=== PATIENT | female | born 1950 | race African-American/Black ===

== ENCOUNTER 2016-12-20 17:00 | Inpatient (IN) | payer OTHER ==
[~2016-12-20] VITALS: Ht 170.2 cm; Wt 108.0 kg
[2016-12-20 18:08] LABS: PLATELET COUNT 190 x10^3mcL (130-400); RED CELL DISTRIBUTION WIDTH 13.5 % (11.5-14.5)
[2016-12-20 18:13] LABS: CALCIUM 9.6 mg/dL (8.5-10.1); CARBON DIOXIDE 24.6 mmol/L (21-32); CREATININE SERUM 1.3 mg/dL (0.6-1.0); POTASSIUM SERUM 3.7 mmol/L (3.5-5.1)
[2016-12-20 18:18] LABS: ALBUMIN 3.4 g/dL (3.4-5.0); BILIRUBIN TOTAL 0.42 mg/dL (0.20-1.00); TOTAL PROTEIN, SERUM 7.2 g/dL (6.4-8.2)
[2016-12-20] MEDS ORDERED: NOR10 PO (18:44)
[2016-12-20] MEDS ORDERED: CRANBERRY PLUS1 EAC1 PO (18:45)
[2016-12-20] MEDS ORDERED: NOR10T PO (18:45)
[2016-12-20] MEDS ORDERED: LASIX40 MG PO (18:45)
[2016-12-20] MEDS ORDERED: KLOR-CON M2020 MEQ PO (18:46)
[2016-12-20] MEDS ORDERED: FISH OIL500 M1 PO (18:48)
[2016-12-20] MEDS ORDERED: SENNA LAX8.6 MG PO (18:48)
[2016-12-20 18:50] LABS: BAND NEUTROPHIL 0 % (0-10); BASOPHIL 0 % (0-2); MONOCYTE 4 % (0-7); PLATELET MORPHOLOGY LARGE PLATELET SEEN; SEGMENTED NEUTROPHILS 67 % (37-75); rbc morphology (normal/abnorm) ABNORMAL (NORMAL)
[2016-12-20 21:00] VITALS: BP 143/67
[2016-12-20 21:33] LABS: MAGNESIUM 1.6 mg/dL (1.8-2.4); PHOSPHOROUS 2.2 mg/dL (2.5-4.9)
[2016-12-20 21:34] LABS: CHOLESTEROL/HDL RATIO 4.3
[2016-12-20 21:58] LABS: FREE T4 1.1 ng/dL (0.76-1.46); FREE THYROXINE INDEX 3.2 ug/dL (1.4-4.5); T4(THYROXINE) 9.5 ug/dL (4.7-13.3)
[2016-12-20 22:25] LABS: T3 TOTAL 1.12 ng/mL
[2016-12-21] MEDS ORDERED: METOPROLOL TART25 M1 PO (02:55)
[2016-12-21 05:43] LABS: BASOPHIL % 0.5 % (0-2); PLATELET COUNT 164 x10^3mcL (130-400); RED CELL DISTRIBUTION WIDTH 13.4 % (11.5-14.5)
[2016-12-21 06:07] LABS: CALCIUM 9.1 mg/dL (8.5-10.1); CARBON DIOXIDE 22.5 mmol/L (21-32); CREATININE SERUM 1.2 mg/dL (0.6-1.0); MAGNESIUM 1.6 mg/dL (1.8-2.4); PHOSPHOROUS 2.9 mg/dL (2.5-4.9); POTASSIUM SERUM 3.7 mmol/L (3.5-5.1)
[2016-12-21 06:14] VITALS: BP 111/56
[2016-12-21 10:33] VITALS: BP 120/69
[2016-12-21 18:45] VITALS: BP 129/61
[2016-12-21 19:42] LABS: UA SPECIFIC GRAVITY 1.015 (1.005-1.035); microscopic required? YES; urine erythrocyte 3+ (NEGATIVE)
[2016-12-21 19:53] LABS: AMPHETAMINE QUAL UR NONE DETECTED (NEG <=1000)
[2016-12-21 21:27] VITALS: BP 143/70
[2016-12-22 06:13] LABS: BASOPHIL % 0.5 % (0-2); PLATELET COUNT 166 x10^3mcL (130-400); RED CELL DISTRIBUTION WIDTH 13.3 % (11.5-14.5)
[2016-12-22 06:36] LABS: CALCIUM 9.2 mg/dL (8.5-10.1); CARBON DIOXIDE 21.2 mmol/L (21-32); CREATININE SERUM 1.3 mg/dL (0.6-1.0); MAGNESIUM 1.6 mg/dL (1.8-2.4); POTASSIUM SERUM 4.1 mmol/L (3.5-5.1)
[2016-12-22 06:40] VITALS: BP 128/70
[2016-12-22] MEDS ORDERED: LASIX40 MG PO (09:21)
[2016-12-22] MEDS ORDERED: MASON NATURAL1000 IU PO (09:22)
[2016-12-22 10:17] VITALS: BP 132/64
[2016-12-22 13:31] VITALS: BP 117/49
[2016-12-22 17:14] VITALS: BP 122/54
[2016-12-22 21:57] VITALS: BP 115/50
[2016-12-23 05:51] VITALS: BP 101/51
[2016-12-23 05:56] LABS: BASOPHIL % 0.6 % (0-2); PLATELET COUNT 173 x10^3mcL (130-400); RED CELL DISTRIBUTION WIDTH 13.5 % (11.5-14.5)
[2016-12-23 06:18] LABS: CALCIUM 9.2 mg/dL (8.5-10.1); CARBON DIOXIDE 21.9 mmol/L (21-32); CREATININE SERUM 1.2 mg/dL (0.6-1.0); MAGNESIUM 1.5 mg/dL (1.8-2.4); PHOSPHOROUS 2.9 mg/dL (2.5-4.9); POTASSIUM SERUM 3.8 mmol/L (3.5-5.1)
[2016-12-23 10:16] VITALS: BP 97/40
[2016-12-23] MEDS ORDERED: LEVAQUIN750 MG PO (11:19)
[2016-12-23] MEDS ORDERED: CLINDAMYCIN HC300 MG PO (11:20)
[2016-12-23 11:45] VITALS: BP 97/40
[2016-12-23] MEDS ORDERED: LEVAQUIN500 M1 PO (11:50)
[2016-12-23] MEDS ORDERED: LIPI10 PO (12:20)
[2016-12-23] MEDS ORDERED: ASPIR 8181 MG PO (12:20)
== END 2016-12-23 18:43 | disposition home or self-care (01) | DRG 312 ==
LOC: ED 17:00 → MU 19:29 → DU 19:29 → MU 12-21 11:20
PROVIDERS: Emergency Medicine; ADMIT Family Medicine
PROC: 0HBNXZZ Excision of Left Foot Skin, External Approach (ICD-10-PCS; principal; 2016-12-21)
DX: M86.8X7 Other osteomyelitis, ankle and foot (principal); N17.0 Acute kidney failure with tubular necrosis; I89.0 Lymphedema, not elsewhere classified; E83.42 Hypomagnesemia; G82.20 Paraplegia, unspecified; E87.8 Other disorders of electrolyte and fluid balance, not elsewhere classified; E83.39 Other disorders of phosphorus metabolism; R23.8 Other skin changes; Z99.3 Dependence on wheelchair; Z68.37 Body mass index [BMI] 37.0-37.9, adult; N39.0 Urinary tract infection, site not specified; I70.202 Unspecified atherosclerosis of native arteries of extremities, left leg
CPT/HCPCS: 83880; 84439; J0696; J1956; J3475; J3490; J7030; Q0092

== ENCOUNTER 2017-05-24 19:28 | Emergency (ER) | payer MEDICARE, OTHER ==
[~2017-05-24 19:28] MED LIST: ASPIR 8181 MG PO; CLINDAMYCIN HC300 MG PO; CRANBERRY PLUS1 EAC1 PO; FISH OIL500 M1 PO; KLOR-CON M2020 MEQ PO; LASIX40 MG PO; LEVAQUIN500 M1 PO; LEVAQUIN750 MG PO; LIPI10 PO; MASON NATURAL1000 IU PO; METOPROLOL TART25 M1 PO; NOR10 PO; NOR10T PO; SENNA LAX8.6 MG PO
[2017-05-24 22:23] LABS: microscopic required? YES; urine erythrocyte 1+ (NEGATIVE)
[2017-05-24 23:54] VITALS: BP 118/56
== END 2017-05-24 23:54 | disposition home or self-care (01) ==
LOC: ED 19:28
PROVIDERS: Emergency Medicine
DX: S63.602A Unspecified sprain of left thumb, initial encounter (principal); R82.71 Bacteriuria; G82.20 Paraplegia, unspecified; I10 Essential (primary) hypertension; E78.00 Pure hypercholesterolemia, unspecified; E66.9 Obesity, unspecified; K21.9 Gastro-esophageal reflux disease without esophagitis; Z90.49 Acquired absence of other specified parts of digestive tract; Z88.2 Allergy status to sulfonamides; W34.00XA Accidental discharge from unspecified firearms or gun, initial encounter; Y93.89 Activity, other specified; Y92.89 Other specified places as the place of occurrence of the external cause; Y99.8 Other external cause status
CPT/HCPCS: J1885; Q0092

== ENCOUNTER 2017-06-19 15:26 | Emergency (ER) | payer MEDICARE, OTHER ==
[~2017-06-19] VITALS: Ht 172.7 cm; Wt 113.4 kg
[2017-06-19 17:08] VITALS: Ht 172.7 cm; Wt 113.4 kg
[2017-06-19 19:04] VITALS: BP 109/54
== END 2017-06-19 20:02 | disposition left against medical advice (07) ==
LOC: ED 15:26
DX: Z53.21 Procedure and treatment not carried out due to patient leaving prior to being seen by health care provider (principal)

== ENCOUNTER 2017-06-28 02:27 | Inpatient (IN) | payer OTHER, MEDICARE ==
[~2017-06-28] VITALS: Ht 172.7 cm; Wt 111.8 kg
[2017-06-28 03:57] LABS: CALCIUM 10.2 mg/dL (8.5-10.1); CARBON DIOXIDE 22.6 mmol/L (21-32); CREATININE SERUM 1.5 mg/dL (0.6-1.0); POTASSIUM SERUM 4.8 mmol/L (3.5-5.1)
[2017-06-28 04:28] LABS: BASOPHIL % 0.7 % (0-2); PLATELET COUNT 207 x10^3mcL (130-400); RED CELL DISTRIBUTION WIDTH 13.6 % (11.5-14.5)
[2017-06-28 06:03] VITALS: BP 120/63
[2017-06-28 06:51] LABS: T3 TOTAL 1.34 ng/mL
[2017-06-28 07:02] LABS: FREE T4 1.25 ng/dL (0.76-1.46)
[2017-06-28] MEDS ORDERED: FISH OIL 1,2001 EACH PO (07:29)
[2017-06-28 07:30] LABS: MAGNESIUM 2.1 mg/dL (1.8-2.4); PHOSPHOROUS 2.6 mg/dL (2.5-4.9)
[2017-06-28 07:31] LABS: CHOLESTEROL/HDL RATIO 3.9
[2017-06-28] MEDS ORDERED: NATURAL VITAM1000 MG PO (07:31)
[2017-06-28] MEDS ORDERED: VITAMIN K (07:31)
[2017-06-28] MEDS ORDERED: TOPROL XL25 MG PO (07:32)
[2017-06-28] MEDS ORDERED: ASPIRIN ADULT L81 M3 PO (07:32)
[2017-06-28 09:30] VITALS: BP 134/82
[2017-06-28 10:18] VITALS: BP 134/82
[2017-06-28 14:12] VITALS: BP 131/66
[2017-06-28 18:08] VITALS: BP 144/58
[2017-06-28 22:05] VITALS: BP 138/83
[2017-06-29 06:06] VITALS: BP 131/64
[2017-06-29 08:50] VITALS: BP 144/69
[2017-06-29 12:53] VITALS: BP 133/68
[2017-06-29 17:45] VITALS: BP 142/66
[2017-06-29 21:07] VITALS: BP 113/60
[2017-06-30 05:44] VITALS: BP 113/57
[2017-06-30 07:31] LABS: BASOPHIL % 0.5 % (0-2); PLATELET COUNT 159 x10^3mcL (130-400); RED CELL DISTRIBUTION WIDTH 13.7 % (11.5-14.5)
[2017-06-30 07:46] LABS: CALCIUM 9.8 mg/dL (8.5-10.1); CARBON DIOXIDE 20.6 mmol/L (21-32); CREATININE SERUM 1.4 mg/dL (0.6-1.0); MAGNESIUM 1.8 mg/dL (1.8-2.4); PHOSPHOROUS 3.6 mg/dL (2.5-4.9); POTASSIUM SERUM 4.4 mmol/L (3.5-5.1)
[2017-06-30 09:03] VITALS: BP 141/69
[2017-06-30 09:35] LABS: UA SPECIFIC GRAVITY 1.015 (1.005-1.035); microscopic required? YES; urine erythrocyte 3+ (NEGATIVE)
[2017-06-30 18:23] VITALS: BP 132/78
[2017-06-30 21:38] VITALS: BP 143/76
[2017-07-01 06:19] VITALS: BP 155/65
[2017-07-01 07:24] LABS: BASOPHIL % 0.5 % (0-2); PLATELET COUNT 179 x10^3mcL (130-400)
[2017-07-01 07:40] LABS: CALCIUM 9.9 mg/dL (8.5-10.1); CARBON DIOXIDE 18.7 mmol/L (21-32); CREATININE SERUM 1.5 mg/dL (0.6-1.0); MAGNESIUM 1.7 mg/dL (1.8-2.4); PHOSPHOROUS 3.7 mg/dL (2.5-4.9); POTASSIUM SERUM 4.2 mmol/L (3.5-5.1)
[2017-07-01 07:48] LABS: ALBUMIN 3.2 g/dL (3.4-5.0)
[2017-07-01 09:36] VITALS: BP 106/50
[2017-07-01 12:44] VITALS: Ht 172.7 cm; Wt 111.8 kg
[2017-07-01 12:45] VITALS: BP 146/77
[2017-07-01] MEDS ORDERED: LEVAQUIN750 MG PO (16:17)
[2017-07-01] MEDS ORDERED: LAC PO (16:18)
[2017-07-01] MEDS ORDERED: CLINDAMYCIN HC300 MG PO (16:18)
[2017-07-01] MEDS ORDERED: FLO4 PO (16:19)
[2017-07-01] MEDS ORDERED: MUCINEX600 MG PO (16:21)
[2017-07-01] MEDS ORDERED: PREVPAC1 KIT PO (16:25)
[2017-07-01] MEDS ORDERED: DICLOFENAC POTA50 MG PO (17:27)
[2017-07-01 17:29] VITALS: BP 126/77
== END 2017-07-01 19:15 | disposition home or self-care (01) | DRG 137 ==
LOC: ED 02:27 → DU 05:29
PROVIDERS: Emergency Medicine; Family Medicine; Internal Medicine
PROC: 0DB78ZX Excision of Stomach, Pylorus, Via Natural or Artificial Opening Endoscopic, Diagnostic (ICD-10-PCS; principal; 2017-07-01 07:00)
DX: J69.0 Pneumonitis due to inhalation of food and vomit (principal); N17.0 Acute kidney failure with tubular necrosis; D68.69 Other thrombophilia; G82.20 Paraplegia, unspecified; I42.9 Cardiomyopathy, unspecified; K26.3 Acute duodenal ulcer without hemorrhage or perforation; E11.51 Type 2 diabetes mellitus with diabetic peripheral angiopathy without gangrene; E83.52 Hypercalcemia; N39.0 Urinary tract infection, site not specified; K75.81 Nonalcoholic steatohepatitis (NASH); N28.1 Cyst of kidney, acquired; K29.70 Gastritis, unspecified, without bleeding; K20.8 Other esophagitis; K21.9 Gastro-esophageal reflux disease without esophagitis; N31.8 Other neuromuscular dysfunction of bladder; E78.5 Hyperlipidemia, unspecified; I10 Essential (primary) hypertension; Z99.3 Dependence on wheelchair; E66.9 Obesity, unspecified; Z68.36 Body mass index [BMI] 36.0-36.9, adult; X95.9XXS Assault by unspecified firearm discharge, sequela
CPT/HCPCS: 43235; 83880; 84439; 87804; 94150; J0456; J0696; J1200; J1610; J1644; J1885; J1956; J2250; J2310; J3010; J3490; J7030; J7050; J7620; Q0092

== ENCOUNTER → 2017-07-16 | Outpatient (CLI) | payer MEDICARE, OTHER ==
[~2017-07-16] MED LIST changes: +ASPIRIN ADULT L81 M3 PO; +DICLOFENAC POTA50 MG PO; +FISH OIL 1,2001 EACH PO; +FLO4 PO; +LAC PO; +MUCINEX600 MG PO; +NATURAL VITAM1000 MG PO; +PREVPAC1 KIT PO; +TOPROL XL25 MG PO; +VITAMIN K
== END | disposition home or self-care (01) ==
LOC: RD 16:28
DX: M79.641 Pain in right hand (principal)

== ENCOUNTER 2017-12-23 10:57 | Emergency (ER) | payer MEDICARE, OTHER ==
[~2017-12-23] VITALS: Ht 167.6 cm; Wt 136.1 kg
[2017-12-23 11:01] VITALS: Ht 167.6 cm; Wt 136.1 kg
[2017-12-23 11:45] LABS: RED CELL DISTRIBUTION WIDTH 13.8 % (11.5-14.5)
[2017-12-23 11:49] LABS: BASOPHIL % 0 % (0-2); PLATELET COUNT 115 x10^3mcL (130-400)
[2017-12-23 12:05] LABS: CALCIUM 9.3 mg/dL (8.5-10.1); CARBON DIOXIDE 21.8 mmol/L (21-32); CREATININE SERUM 3.5 mg/dL (0.6-1.0); POTASSIUM SERUM 4.4 mmol/L (3.5-5.1)
[2017-12-23 12:12] LABS: BILIRUBIN TOTAL 1.61 mg/dL (0.20-1.00); TOTAL PROTEIN, SERUM 6.7 g/dL (6.4-8.2)
[2017-12-23 12:16] LABS: ALBUMIN 2.6 g/dL (3.4-5.0)
[2017-12-23 12:42] VITALS: BP 124/66
[2017-12-23 12:42] LABS: UA SPECIFIC GRAVITY 1.056 (1.005-1.035); microscopic required? YES
[2017-12-23 12:45] LABS: urine erythrocyte 1+ (NEGATIVE)
== END 2017-12-23 13:55 | disposition home or self-care (01) ==
LOC: ED 10:57
PROVIDERS: Emergency Medicine
DX: N28.9 Disorder of kidney and ureter, unspecified (principal); E86.0 Dehydration; K21.9 Gastro-esophageal reflux disease without esophagitis; Z88.2 Allergy status to sulfonamides; I10 Essential (primary) hypertension
CPT/HCPCS: 36415; 83880; Q0162

== ENCOUNTER 2017-12-24 12:31 | Inpatient (IN) | payer OTHER, MEDICARE ==
[~2017-12-24] VITALS: Ht 172.7 cm; Wt 111.1 kg
[2017-12-24 14:29] LABS: RED CELL DISTRIBUTION WIDTH 14.4 % (11.5-14.5)
[2017-12-24 14:30] LABS: BILIRUBIN TOTAL 1.1 mg/dL (0.20-1.00); CALCIUM 8.7 mg/dL (8.5-10.1); POTASSIUM SERUM 4.1 mmol/L (3.5-5.1); TOTAL PROTEIN, SERUM 6.8 g/dL (6.4-8.2)
[2017-12-24 14:32] LABS: ALBUMIN 2.5 g/dL (3.4-5.0)
[2017-12-24 14:33] LABS: CREATININE SERUM 4.3 mg/dL (0.6-1.0)
[2017-12-24 14:38] LABS: PLATELET COUNT 116 x10^3mcL (130-400)
[2017-12-24 15:15] LABS: UA SPECIFIC GRAVITY <=1.005 (1.005-1.035); microscopic required? YES; urine erythrocyte 3+ (NEGATIVE)
[2017-12-24 15:35] LABS: BAND NEUTROPHIL 3 % (0-10); BASOPHIL 0 % (0-2); MONOCYTE 5 % (0-7); SEGMENTED NEUTROPHILS 80 % (37-75)
[2017-12-24 15:36] LABS: rbc morphology (normal/abnorm) ABNORMAL (NORMAL)
[2017-12-24 15:37] LABS: PLATELET MORPHOLOGY PLATELETS DECREASED
[2017-12-24 15:42] LABS: MAGNESIUM 1.7 mg/dL (1.8-2.4); PHOSPHOROUS 3.1 mg/dL (2.5-4.9)
[2017-12-24 15:44] LABS: CHOLESTEROL/HDL RATIO 12.4
[2017-12-24 16:19] LABS: FREE T4 1.12 ng/dL (0.76-1.46); FREE THYROXINE INDEX 2.5 ug/dL (1.4-4.5); T3 TOTAL 0.81 ng/mL; T4(THYROXINE) 7.3 ug/dL (4.7-13.3)
[2017-12-24 16:47] VITALS: BP 104/53
[2017-12-24 21:06] VITALS: BP 113/54
[2017-12-24 22:11] LABS: AMPHETAMINE QUAL UR NONE DETECTED (See below)
[2017-12-25 01:54] VITALS: BP 113/54
[2017-12-25 05:19] VITALS: BP 111/55
[2017-12-25 07:25] LABS: BASOPHIL % 0.1 % (0-2); RED CELL DISTRIBUTION WIDTH 14.1 % (11.5-14.5)
[2017-12-25 07:34] LABS: PLATELET COUNT 119 x10^3mcL (130-400)
[2017-12-25 08:17] LABS: CALCIUM 9.1 mg/dL (8.5-10.1); CARBON DIOXIDE 19.6 mmol/L (21-32); MAGNESIUM 2.1 mg/dL (1.8-2.4); PHOSPHOROUS 3.8 mg/dL (2.5-4.9); POTASSIUM SERUM 4.5 mmol/L (3.5-5.1)
[2017-12-25 08:22] LABS: CREATININE SERUM 4.6 mg/dL (0.6-1.0)
[2017-12-25 09:12] VITALS: BP 118/56
[2017-12-25 13:28] VITALS: BP 108/51
[2017-12-25 20:34] VITALS: BP 139/55
[2017-12-26 03:21] LABS: BASOPHIL % 0.4 % (0-2); RED CELL DISTRIBUTION WIDTH 14.4 % (11.5-14.5)
[2017-12-26 03:24] LABS: PLATELET COUNT 116 x10^3mcL (130-400)
[2017-12-26 03:43] LABS: CALCIUM 9.2 mg/dL (8.5-10.1); MAGNESIUM 2.3 mg/dL (1.8-2.4); PHOSPHOROUS 3.8 mg/dL (2.5-4.9); POTASSIUM SERUM 4.5 mmol/L (3.5-5.1)
[2017-12-26 03:47] LABS: CREATININE SERUM 4.6 mg/dL (0.6-1.0)
[2017-12-26 06:50] VITALS: BP 117/43
[2017-12-26 08:00] VITALS: BP 132/53
[2017-12-26 13:27] VITALS: BP 125/55
[2017-12-26 17:06] VITALS: BP 139/57
[2017-12-26 20:47] VITALS: BP 143/59
[2017-12-27 04:58] VITALS: BP 117/44
[2017-12-27 06:28] LABS: BASOPHIL % 0.5 % (0-2); PLATELET COUNT 148 x10^3mcL (130-400); RED CELL DISTRIBUTION WIDTH 14.3 % (11.5-14.5)
[2017-12-27 06:50] LABS: CARBON DIOXIDE 16.6 mmol/L (21-32); MAGNESIUM 2.3 mg/dL (1.8-2.4); PHOSPHOROUS 4.1 mg/dL (2.5-4.9); POTASSIUM SERUM 4.8 mmol/L (3.5-5.1)
[2017-12-27 07:07] LABS: CREATININE SERUM 4.3 mg/dL (0.6-1.0)
[2017-12-27 08:10] VITALS: BP 139/58
[2017-12-27 12:30] VITALS: BP 152/69
[2017-12-27] MEDS ORDERED: ELIQUIS2.5 MG PO (17:03)
== END 2017-12-27 17:40 | disposition home or self-care (01) | DRG 463 ==
LOC: ED 12:31 → DU 14:39
PROVIDERS: Emergency Medicine; Family Medicine; Internal Medicine Nephrology
DX: N39.0 Urinary tract infection, site not specified (principal); N17.0 Acute kidney failure with tubular necrosis; E43 Unspecified severe protein-calorie malnutrition; G93.41 Metabolic encephalopathy; G82.20 Paraplegia, unspecified; E87.1 Hypo-osmolality and hyponatremia; E83.42 Hypomagnesemia; S24.102S Unspecified injury at T2-T6 level of thoracic spinal cord, sequela; I12.9 Hypertensive chronic kidney disease with stage 1 through stage 4 chronic kidney disease, or unspecified chronic kidney disease; N18.3 Chronic kidney disease, stage 3 (moderate); K21.9 Gastro-esophageal reflux disease without esophagitis; B96.20 Unspecified Escherichia coli [E. coli] as the cause of diseases classified elsewhere; B96.1 Klebsiella pneumoniae [K. pneumoniae] as the cause of diseases classified elsewhere; N13.30 Unspecified hydronephrosis; E66.9 Obesity, unspecified; Z99.3 Dependence on wheelchair; Z68.37 Body mass index [BMI] 37.0-37.9, adult; W34.00XS Accidental discharge from unspecified firearms or gun, sequela
CPT/HCPCS: 83880; 84439; A9540; J0696; J1644; J3475; J3490; J7030; J7620; Q0092

== ENCOUNTER 2017-12-29 17:41 | Emergency (ER) | payer OTHER, MEDICARE ==
[~2017-12-29] VITALS: Ht 172.7 cm; Wt 107.5 kg
[~2017-12-29 17:41] MED LIST changes: +ELIQUIS2.5 MG PO
[2017-12-29 17:49] VITALS: Ht 172.7 cm; Wt 107.5 kg
[2017-12-29 23:22] VITALS: BP 150/71
== END 2017-12-29 23:22 | disposition home or self-care (01) ==
LOC: ED 17:41
DX: J18.9 Pneumonia, unspecified organism (principal); G82.20 Paraplegia, unspecified; R11.2 Nausea with vomiting, unspecified; I10 Essential (primary) hypertension; Z88.2 Allergy status to sulfonamides
CPT/HCPCS: 36600; 94150; J7613